=== PATIENT | male | born 1970 | race Caucasian/White ===

== ENCOUNTER 2022-03-18 08:35 | Day surgery (SDC) | payer OTHER ==
[~2022-03-18] VITALS: Ht 190.5 cm; Wt 122.7 kg
[~2022-03-18 08:35] MED LIST: SODIUM CHLORIDE 0.9% 1,000 ML IV ONE
[2022-03-18 09:04] LABS: COVID AG,FIA SOURCE NASAL SWAB
== END 2022-03-18 12:40 | disposition home or self-care (01) ==
LOC: SURGERY 08:35
PROVIDERS: ATTEND Internal Medicine Gastroenterology
DX: K64.1 Second degree hemorrhoids (principal); Z79.899 Other long term (current) drug therapy; Z98.890 Other specified postprocedural states; Z88.0 Allergy status to penicillin; Z87.891 Personal history of nicotine dependence; Z72.89 Other problems related to lifestyle
CPT/HCPCS: 88305